=== PATIENT | female | born 1955 | race Caucasian/White ===

== ENCOUNTER 2022-08-05 07:20 | Observation (INO) ==
--- NOTE | 2022-07-08 11:45 | PAT Medication Instructions ---
Medication Instructions Date of Service July 08, 2022 Home Medications Antacid 1 tab PO UD PRN gerd anastrozole 1 mg tablet 1 mg PO QAM calcium carbonate 600 mg calcium (1,500 mg) tablet 600 mg PO BID cholecalciferol (vitamin D3) 50 mcg (2,000 unit) capsule (Vitamin D3) 50 mcg PO QDL denosumab 60 mg/mL subcutaneous syringe (Prolia) 60 mg subcut UD lisinopril 10 mg tablet 10 mg PO QPM multivitamin 1 cap PO QAM omega-3 fatty acids 1,000 mg PO BID pravastatin 20 mg tablet 20 mg PO QPM Continue as directed denosumab 60 mg/mL subcutaneous syringe (Prolia) 60 mg subcut UD ASK your prescriber and surgeon anastrozole 1 mg tablet 1 mg PO QAM STOP taking 2 weeks before surgery omega-3 fatty acids 1,000 mg PO BID DO NOT take the morning of surgery calcium carbonate 600 mg calcium (1,500 mg) tablet 600 mg PO BID multivitamin 1 cap PO QAM cholecalciferol (vitamin D3) 50 mcg (2,000 unit) capsule (Vitamin D3) 50 mcg PO QDL Take morning of surgery With a small sip of water, OTHERWISE NOTHING TO EAT OR DRINK AFTER MIDNIGHT: Antacid 1 tab PO UD PRN gerd (*pepcid, prilosec, nexium are ok... TUMS IS NOT OKAY TO TAKE AM OF SURGERY) Take evening before surgery calcium carbonate 600 mg calcium (1,500 mg) tablet 600 mg PO BID pravastatin 20 mg tablet 20 mg PO QPM lisinopril 10 mg tablet 10 mg PO QPM Other Notes If you have any questions please call us at [phone] or [phone] or [phone] or [phone]
--- NOTE | 2022-07-11 11:25 | Anesthesiology Consultation ---
Date of Service July 11, 2022 Assessment & Plan (1) Encounter for pre-operative examination: - surgery now scheduled as unilateral TKA. - Case discussed in detail with Dr. Joya who advised pt does not need further evaluation to his standpoint, but that procedure should be changed to unilateral TKA, not bilateral. This was also discussed with pt at PAT visit and she expressed plan to change booking after similar recommendations by other providers. Surgeon's office made aware. - PONV: to anesthesiologist discretion if scop patch to be Rx for pt DOS or alternate options to be pursued. - limb restriction: left upper arm. - Outpatient joint assessment: Patient is currently scheduled for inpatient pathway. If re-evaluated pending system levels during current pandemic/surgeon requests outpatient pathway, patient is not acceptable candidate for outpatient joint program from anesthesia standpoint (even for unilateral TKA)-she notes her just underwent spinal surgery and she prefers to remain overnight. Chart Review Chart Review: Acceptable Risk for Surgery and Patient seen in Pre Admission Testing Teaching & Discussion Pre-Anesthesia Teaching/Discussion Notes: Instructed NPO after midnight before surgery, except medications with 15 cc of water. Medication instructions provided according to the PAT guidelines. History Surgery Operation Date: 08/05/22 07:15 Proposed Procedures p Right Total Knee Arthroplasty - Juan R Pugh, Height/Weight Height: 5 ft 2 in Weight: 90.718 kg Allergies Allergy/AdvReac Type Severity Reaction Status Date / Time Penicillins Allergy Rash Verified 07/08/22 10:01 Medications Home Medications Medication Instructions Recorded Confirmed Last Taken Antacid 1 tab PO UD PRN gerd 07/08/22 07/08/22 Unknown anastrozole 1 mg tablet 1 mg PO QAM 07/08/22 07/08/22 Unknown calcium carbonate 600 mg calcium 600 mg PO BID 07/08/22 07/08/22 Unknown (1,500 mg) tablet cholecalciferol (vitamin D3) 50 50 mcg PO QDL 07/08/22 07/08/22 Unknown mcg (2,000 unit) capsule (Vitamin D3) denosumab 60 mg/mL subcutaneous 60 mg subcut UD 07/08/22 07/08/22 Unknown syringe (Prolia) lisinopril 10 mg tablet 10 mg PO QPM 07/08/22 07/08/22 Unknown multivitamin 1 cap PO QAM 07/08/22 07/08/22 Unknown omega-3 fatty acids 1,000 mg PO BID 07/08/22 07/08/22 Unknown pravastatin 20 mg tablet 20 mg PO QPM 07/08/22 07/08/22 Unknown Past Medical History Medical History GERD (gastroesophageal reflux disease) controlled, stable per pt History of breast cancer dx'd 08/2021. left breast. lumpectomy + radiation. History of migraine History of skin cancer removed HLD (hyperlipidemia) HTN (hypertension) controlled, stable per pt Limb alert care status LUE PONV (postoperative nausea and vomiting) scop patch administered for breast surgery Patient denies h/o stroke, seizures, heart attack, heart failure, DM, blood clots or blood transfusions. Exercise / Class Metabolic Activity II 4-5 Yardwork/Stairs/Walk up hill (occasional shortness of breath with 1 FOS, ongoing x several months with progressive knee dysfunction; denies change or worsening; denies chest discomfort) Past Family History Family History Other No family history of adverse response to anesthesia Past Surgical History Surgical History H/O lymph node excision History of appendectomy History of breast biopsy History of x 3 History of cholecystectomy History of colonoscopy History of lumpectomy of left breast Past Anesthesia History No Hx of Anesthesia Complications and No Family Hx of Anesthesia Complications History of PONV History of PONV (scop patch administered for breast surgeries) and Hx of Motion Sickness Social History Smoking Status: Never smoker Do You Dip or Chew Tobacco: No Hx Alcohol Use: No Hx Substance Use: No substance use type: does not use Review of Systems Patient denies chest pain, snoring, witnessed apneas, fever, chills, cough, wheezing, or palpitations. Physical Exam Vital Signs Vitals BP 124/81 P 67 TEMP 98.5 SP02 98% on RA RESP 18 Physical Full cervical extension range of motion without pain TMD 3.5 finger breadths Mallampati Score 3 Dentition: permanent upper bridge and partial lower; denies chipped or loose teeth Lungs: normal respiratory effort. Clear throughout to auscultation, no adventitious breath sounds Cardiac: regular rate and rhythm, no murmurs noted Carotid arteries: negative bruit bilat Lab Results Anesthesia Preop Results Results Anesthesia Widget: WBC 5.91 K/ul (4.8-10.8) 07/11/22 Hgb 12.5 g/dl (12.0-16.0) 07/11/22 Hct 37.6 % (37.0-47.0) 07/11/22 Plt 242 K/uL (130-400) 07/11/22 Na 139 mmol/L (136-145) 07/11/22 K 4.7 mmol/L (3.5-5.1) 07/11/22 Cl 106 mmol/L (98-107) 07/11/22 CO2 27 mmol/L (21-32) 07/11/22 BUN 19 mg/dl (6-23) 07/11/22 Creat 0.79 mg/dl (0.6-1.2) 07/11/22 Glucose Level 94 mg/dl (70-99(Fasting)) 07/11/22 PT 10.2 Seconds (9.0-12.0) 07/11/22 PTT 26.2 Seconds (21.0-31.0) 07/11/22 INR 1.0 (0.9-1.1) 07/11/22 Urine Color Yellow 07/11/22 Urine Appearance Clear (Clear) 07/11/22 Urine pH 5.0 (4.5-7.5) 07/11/22 Urine Specific [place] 1.012 (1.000-1.030) 07/11/22 Urine Protein Negative (Negative) 07/11/22 Urine Glucose (UA) Negative (Negative) 07/11/22 Urine Ketones Negative (Negative) 07/11/22 Urine Blood Negative (Negative) 07/11/22 Urine Nitrite Negative (Negative) 07/11/22 Urine Bilirubin Negative (Negative) 07/11/22 Urine Urobilinogen Negative (Negative) 07/11/22 Urine Leukocyte Esterase Trace (Negative) H 07/11/22 Urine WBC (Auto) 1-5 /hpf (0-5) 07/11/22 Urine RBC (Auto) 0-4 /hpf (0-4) 07/11/22 Urine Hyaline Casts (Auto) 1-5 /lpf (0-5) 07/11/22 Urine Epithelial Cells (Auto) 10-20 /lpf (0-5) H 07/11/22 Urine Bacteria (Auto) Negative (Negative) 07/11/22 Blood Type AB Positive 07/11/22 Antibody Screen NEGATIVE 07/11/22 Testing Electrocardiogram Date: 07/11/22 Sinus bradycardia, rate 58 bpm Chest X-Ray Date: 07/11/22 Left axillary surgical clips are incidentally noted. No pneumothorax or pleural effusion is present. There is no evidence for pulmonary edema. There is no consolidation to suggest pneumonia. There is mild cardiomegaly. IMPRESSION: No acute cardiopulmonary findings. COVID-19 Risk Screen Screening Information COVID-19 Screen Date: 07/11/22 Exposure 21 Days Family/Household +COVID Last 21 Days: No Exposure 10 Days Any COVID Exposure Last 10 Days: No Symptoms Last 10 Days Experienced COVID Sx Last 10 Days: No + COVID 0-90 Days COVID + in Last 0-90 Days: No
--- NOTE | 2022-07-14 10:50 | History & Physical Report ---
Date of Service July 14, 2022 date of surgery: 08/05/22 Procedure: Right Total Knee Arthroplasty Surgeon: Juan R Pugh Assessment & Plan (1) Arthritis of right knee: Plan: Presents for preop evaluation prior to right total knee replacement scheduled at [facility] with Dr. Pugh. She has failed conservative measures including previous corticosteroid injection as well as viscosupplementation without any relief. At this point time she has failed conservative measures and would like to proceed with surgical invention. will place on ASA 81mg po bid x 1 month, recommend HHPT x 2 weeks. The risks and benefits have been discussed including, but not limited to, risk of infection, nerve injury, stiffness, loss of motion, failure to improve, etc. Reasonable outcomes and options of treatment were discussed. An explanation of appropriate alternatives to the procedure that may be advantageous were discussed and their risks and benefits, as well as the risks and benefits of not proceeding with treatment. I offered to answer any additional inquiries concerning the treatment involved. All the patient's questions were answered. The patient is agreeable, understanding of the treatment plan and alternatives, and wishes to proceed with the treatment plan. History of Present Illness Chief Complaint: Right knee pain Primary Care Provider: NO PCP Maisha is a pleasant 67-year-old female who presented for preop evaluation prior to right total knee replacement. She states that he been having pain in this knee for many years now is gradually worsened and is now affecting her daily activities including walking standing using stairs. She has failed previous conservative measures including corticosteroid injection as well as viscosupplementation without relief. She tried Tylenol anti-inflammatories as well, rates her current pain is 7 out of 10 at this point time would like to proceed with right total knee replaced Allergies Allergy/AdvReac Type Severity Reaction Status Date / Time Penicillins Allergy Rash Verified 07/08/22 10:01 Home Medications Medication Instructions Recorded Confirmed Type Antacid 1 tab PO UD PRN gerd 07/08/22 07/08/22 History anastrozole 1 mg tablet 1 mg PO QAM 07/08/22 07/08/22 History calcium carbonate 600 mg calcium 600 mg PO BID 07/08/22 07/08/22 History (1,500 mg) tablet cholecalciferol (vitamin D3) 50 50 mcg PO QDL 07/08/22 07/08/22 History mcg (2,000 unit) capsule (Vitamin D3) denosumab 60 mg/mL subcutaneous 60 mg subcut UD 07/08/22 07/08/22 History syringe (Prolia) lisinopril 10 mg tablet 10 mg PO QPM 07/08/22 07/08/22 History multivitamin 1 cap PO QAM 07/08/22 07/08/22 History omega-3 fatty acids 1,000 mg PO BID 07/08/22 07/08/22 History pravastatin 20 mg tablet 20 mg PO QPM 07/08/22 07/08/22 History Past Med/Surg History Medical History GERD (gastroesophageal reflux disease) controlled, stable per pt History of breast cancer dx'd 08/2021. left breast. lumpectomy + radiation. History of migraine History of skin cancer removed HLD (hyperlipidemia) HTN (hypertension) controlled, stable per pt Limb alert care status LUE PONV (postoperative nausea and vomiting) scop patch administered for breast surgery Surgical History H/O lymph node excision History of appendectomy History of breast biopsy History of x 3 History of cholecystectomy History of colonoscopy History of lumpectomy of left breast Family History Other No family history of adverse response to anesthesia Social History Smoking Status: Never smoker Second Hand Exposure: Yes (as a child); Hx Alcohol Use: No Hx Substance Use: No Preferred Language: Cymro Communication Ability: Effective Log Handler Required: No Beliefs That Will Affect Care: None Current Living Situation: Spouse Feels Safe at Home: Yes Assistive Devices: Denture - Lower and Glasses Review of Systems Review of Systems: All systems reviewed & are unremarkable except as noted in HPI & below Constitutional: no fever, no chills and no sweats Respiratory: no cough and no dyspnea Cardiovascular: no chest pain, no dyspnea and no orthopnea Gastrointestinal: no abdominal pain, no nausea and no vomiting Musculoskeletal: as per Subjective / HPI Physical Exam Physical Exam: HT: 5ft 2in WT: 95.5kg Constitutional: WD/WN, vitals as above no acute distress Respiratory: normal respiratory effort, lungs clear to auscultation no respiratory distress, no labored breathing and does not use accessory muscles Cardiovascular: RRR, no murmur, no edema Gastrointestinal (Abdomen): normal bowel sounds, soft, nontender, no hepatosplenomegaly Musculoskeletal: Knee: + knee abnormal to inspection (Right Knee: ), + effusion (+1 effusion), + limited ROM of knee (ROM 0/3/110), + knee ROM with crepitation, + joint line tenderness (medial joint line) and + Jadiel's sign positive; no deformity, no skin erythema, no ecchymosis, no valgus laxity, no varus laxity, anterior drawer test negative, Wild's sign negative and pivot shift test negative Results & Data Results & Data Diagnostic Findings Right Knee X-ray: Right knee series showing advanced degenerative changes to the right knee, narrowing of the medial compartment and patello-femoral joint with patellar spurring noted, findings showing joint space narrowing of the medial compartment and patello-femoral joint, osteophyte formation and subchondral sclerosis noted. overall varus alignment. no acute bony pathology noted.
[~2022-08-05 07:20] MED LIST: ACETAMINOPHEN 500 MG TAB PO SCH; CeleBREX 200 MG CAP PO SCH; FAMOTIDINE 20 MG TAB PO SCH; GABAPENTIN 300 MG CAP PO SCH; LR 500ML BOLUS, THEN 15ML/HR IV SCH; METOCLOPRAMIDE HCL 10 MG TABLET PO SCH; ROPIVACAINE 0.5% 5 MG/ML 30 ML VIAL ONE; ROPIVACAINE 0.5% HCL/PF 150 MG, BUPIVACAINE 0.75% MPF 20 ML, EPINEPHrine 30MG/30ML (OR ... INSTIL SCH; TRANEXAMIC ACID 1,000 MG **IV Intra-op IV SCH; TRANEXAMIC ACID 1,000 MG **IV Pre-op IV SCH; ceFAZolin 2000MG 2,000 MG/15 ML SYR IV SCH; dexAMETHasone 4 MG TAB PO SCH
[2022-08-05] MEDS ORDERED: fentaNYL citrate PF 100 MCG/2 ML VIAL ONE (07:45)
[2022-08-05] MEDS ORDERED: MIDAZOLAM HCL 1 MG/ML 2ML VIAL ONE ×2 (07:45)
[2022-08-05] MEDS ORDERED: ONDANSETRON INJ 2 MG/ML 2 ML VIAL ONE (08:18)
[2022-08-05] MEDS ORDERED: PROPOFOL IV EMULSION 10 MG/ML 20 ML VIAL IV ONE (08:18)
--- NOTE | 2022-08-05 08:24 | History & Physical Bridge Note ---
Date of Service August 05, 2022 History & Physical Bridge Note I have examined the patient, reviewed the History & Physical and in the interval since the performance of the History & Physical I have noted the following changes of clinical significance: no changes noted
[2022-08-05] MEDS ORDERED: ORTHO JOINT ANESTHETIC ONE (08:55)
[2022-08-05] MEDS ORDERED: ePHEDrine sulfate 50 MG/ML AMP IV PRN (09:00)
[2022-08-05] MEDS ORDERED: HYDROmorphone INJ 2 MG/ML SYR/VIAL IV PRN (09:00)
[2022-08-05] MEDS ORDERED: ONDANSETRON INJ 2 MG/ML 2 ML VIAL IV PRN ×2 (09:00→12:44)
[2022-08-05] MEDS ORDERED: fentaNYL citrate PF 100 MCG/2 ML VIAL IV PRN (09:00)
[2022-08-05] MEDS ORDERED: ATROPINE SULFATE 0.1 MG/ML 10ML SYR IV PRN (09:00)
--- NOTE | 2022-08-05 10:36 | Operative Report ---
Post Operative Report Pre & Post Diagnosis Operation Date: 08/05/22 09:15 Pre-Op Diagnosis: Arthritis of right knee Post-Op Diagnosis: Arthritis of right knee I identified the patient and participated in the time-out.: Yes Procedure Operation Date: 08/05/22 09:15 Actual Procedures p Right Total Knee Arthroplasty(Right utilizing [employer] journey 2 patient matched total knee arthroplasty size femur 5 tibia 4 poly 11 mm constrained patella 29 oval) - Juan R Pugh DO Surgeon Juan R Pugh DO Senior Technical Writer THAD [place] Estimated Blood Loss 5 Findings Consistent with Post-Op Diagnosis Patient presents with severe end-stage DJD valgus alignment of the right knee with eburnated [id number] marginal osteophytes medial lateral collateral ligament laxity subchondral cystic changes with subchondral eburnated exposed bone moderate to large effusion Specimens Bone and cartilage Drains Medium bore Hemovac Anesthesia Type MAC Spinal Regional Complications none Disposition Accompanied Patient To Recovery: No Disposition: Recovery Room Indications Patient presents with severe end-stage tricompartmental DJD after failed attempt ed conservative management occluding physical therapy anti-inflammatories relative rest activity modification corticosteroid injection viscosupplementation Description of Procedure After proper prepping and draping of the Right lower extremity anterior midline incision was made over the region of the extensor extensor mechanism after meticulous hemostasis was obtained and maintained in subcutaneous tissues a medial parapatellar incision was made The patella was subluxed lateralward the medial lateral gutter were cleaned from any hypertrophic synovitis and scar tissue of the distal femoral block was placed and the distal femoral osteotomy cut was made subsequently the chamfers anterior and posterior osteotomy cuts were made utilizing the 4-in-1 block the tibia was subsequently subluxed anteriorward medial and ateral meniscal remnants were excised in their entirety remnants of the anterior and posterior cruciate ligaments were excised in their entirety excellent exposure of the proximal tibia was obtained the tibial osteotomy guide was placed on the proximal tibial osteotomy cut was made once again the knee was irrigated with copious amounts of sterile saline solution the patella was subsequently everted lateralward thickened scar tissue around the patella was removed the patella was subsequently cut utilizing a freehand technique and was drilled prepared for final preparation and placement of patella socially flexion-extension gaps were checked and the equal and symmetric trials were placed to the appropriate femoral and tibial trials with poly-spacer being placed for equal flexion and extension gaps and full range of motion including extension to 0 and flexion to 140 the trial components after having been taken to recovery range of motion was subsequently removed meticulous hemostasis was obtained and maintained subsequently a knee block injection of joint cocktail including ropivacaine 0.5% 150 mg. Bupivacaine 0.5% epinephrine 1-200,030 mL's toradol 30 mg dexamethasone 4 mg ketamine 10 mg clonidine 100 micrograms normal saline solution 30 mg was infiltrated into the soft tissues of the posterior knee medial lateral gutters and periosteal synovium special attention was paid to protect neurovascular structures at all times subsequently trial components having been removed the knee was irrigated with sterile saline solution. debris was removed the proximal tibia was subsequently prepared and was made ready for the placement of the tibial component tibial component was also cemented and tamped into position the femoral component was subsequently placed and cemented in the position the patellar component was subsequently cemented in position because hemostasis once again obtained and maintained wound having been thoroughly irrigated with debridement and debridement lavage was performed as well as a medial parapatellar incision closed with #1 Vicryl in interrupted fashion subcutaneous was closed with #2 Vicryl skin was closed with skin clips. PA-C was necessary for prepping and drapping as well as wound closure of deep fascia Sub cutaneous tissue and skin and was necessary for the case. A sterile compressive dressing was placed patient was taken to recovery in stable condition of report dictated by Keaton I attest to the content of the Intraoperative Record and any orders documented therein. Any exceptions are noted below.Due to the complex nature of the procedure, the entire surgery was performed with the operational assistance of THAD Camar[place]. The sales assistant, under direct supervision, was involved in the actual performance of all aspects of the surgical procedure including hemostasis, tissue retraction and incision, instrument management, patient positioning, and wound closure. I attest to the content of the Intraoperative Record and any orders documented therein. Any exceptions are noted below.
[2022-08-05] MEDS ORDERED: PHENYLEPHRINE 100MCG/ML 5ML SYR ONE (11:01)
[2022-08-05] MEDS ORDERED: SCOPOLAMINE 1 MG TDSY TD SCH (11:30)
--- NOTE | 2022-08-05 11:52 | XRay Report ---
XR knee RT 1 or 2V routine CLINICAL HISTORY: Surgical Post Op COMPARISON: None FINDINGS: Alignment of the total right knee arthroplasty is anatomic. There is no periprosthetic fra cture. There is no unexpected radiopaque foreign body. There are surgical drains. IMPRESSION: Expected findings following total right knee arthroplasty. ACT 112: Negative or not required by law. Electronically signed by: Jose Cabrales M.D. 08/05/2022 11:51 AM
--- NOTE | 2022-08-05 12:03 | Anesthesiology Progress Note ---
Date of Service August 05, 2022 Anesthesia Post Procedure Vital Signs Vital Signs: Temp Pulse Resp BP Pulse Ox O2 Del Method O2 Flow Rate 08/05/22 11:55 36.4 C L 70 20 100/68 94 Room Air 08/05/22 11:45 67 20 106/70 94 Room Air 08/05/22 11:35 71 12 96/60 L 99 Oxymask 10 08/05/22 11:25 66 12 95/59 L 99 Oxymask 10 08/05/22 11:19 36.4 C L 68 14 98/58 L 97 Oxymask 10 08/05/22 07:40 36.8 C 20 149/95 H 98 Room Air Transfer of Care Handoff Completed per policy Notes Mental Status: alert / awake / arousable and participated in evaluation Patient Amnestic to Procedure: Yes Nausea / Vomiting: adequately controlled Pain: adequately controlled Airway Patency, RR, SpO2: stable & adequate BP & HR: stable & adequate Hydration State: stable & adequate Neuraxial Anesthesia: was administered and sensory block is resolving Anesthetic Complications: no major complications apparent and Pt Satisfied with anesthetic care
[2022-08-05] MEDS ORDERED: diphenhydrAMINE Capsule 25 MG CAP PO PRN (12:44)
[2022-08-05] MEDS ORDERED: NALOXONE HCL 0.4 MG/1 ML VIAL/CARP IV PRN (12:44)
[2022-08-05] MEDS ORDERED: METOCLOPRAMIDE HCL INJ 5 MG/ML 2 ML VIAL IV PRN (12:44)
[2022-08-05] MEDS ORDERED: MAGNESIUM HYDROXIDE SUSP 30 ML UDC PO PRN (12:44)
[2022-08-05] MEDS ORDERED: HYDROmorphone INJ 1 MG/ML SYRINGE IV PRN (12:44)
[2022-08-05] MEDS ORDERED: NON-FORMULARY MEDICATION (Denosumab [Prolia] 60 mg/mL Syringe) SQ SCH (12:44)
[2022-08-05] MEDS ORDERED: bisacodyL 10 MG SUPP PR PRN (12:44)
[2022-08-05] MEDS: SODIUM CHLORIDE 0.9% 1000ML 1,000 ML IV SCH (15:04)
[2022-08-05] MEDS: ACETAMINOPHEN 500 MG TAB PO SCH ×2 (15:18→21:38)
[2022-08-05] MEDS: CHECK SCOPOLAMINE PATCH PLACEMENT SCH (15:22)
[2022-08-05] MEDS: ALLERGY Noted to ORDERED Medication SCH ×4 (15:58→20:13)
[2022-08-05] MEDS: KETOROLAC TROMETHAMINE 15 MG/ML VIAL IV SCH ×2 (16:21→21:39)
[2022-08-05] MEDS: ceFAZolin 2000MG 2,000 MG/15 ML SYR IV SCH (17:35)
[2022-08-05] MEDS: oxyCODONE HCL IR 5 MG TAB (IMMEDIATE RELEASE) PO PRN (18:33)
[2022-08-05] MEDS: CALCIUM 600MG + VIT D 400 IU TAB PO SCH (20:22)
[2022-08-05] MEDS: ASPIRIN 81 MG ECTAB PO SCH (20:23)
[2022-08-05] MEDS: DOCUSATE SODIUM 100 MG CAP PO SCH (20:23)
[2022-08-05] MEDS ORDERED: CeleBREX 200 MG CAP PO SCH (21:00)
[2022-08-05] MEDS ORDERED: lisinopril 10 MG TAB PO SCH (21:00)
[2022-08-05] MEDS ORDERED: PRAVASTATIN SOD 20 MG TAB PO SCH (21:00)
[2022-08-05] MEDS ORDERED: SENNA 8.6 MG TAB PO SCH (21:00)
[2022-08-06] MEDS: SODIUM CHLORIDE 0.9% 1000ML 1,000 ML IV SCH (00:08)
[2022-08-06] MEDS: CHECK SCOPOLAMINE PATCH PLACEMENT SCH ×2 (00:09→07:46)
[2022-08-06] MEDS: ceFAZolin 2000MG 2,000 MG/15 ML SYR IV SCH (00:59)
[2022-08-06] MEDS: KETOROLAC TROMETHAMINE 15 MG/ML VIAL IV SCH ×2 (03:30→10:03)
[2022-08-06] MEDS: oxyCODONE HCL IR 5 MG TAB (IMMEDIATE RELEASE) PO PRN ×2 (03:34→11:31)
[2022-08-06] MEDS: ACETAMINOPHEN 500 MG TAB PO SCH ×2 (05:38→13:49)
[2022-08-06] MEDS: DOCUSATE SODIUM 100 MG CAP PO SCH (07:52)
[2022-08-06] MEDS: ASPIRIN 81 MG ECTAB PO SCH (07:55)
[2022-08-06] MEDS: CALCIUM 600MG + VIT D 400 IU TAB PO SCH (08:29)
--- NOTE | 2022-08-06 08:41 | Orthopedic Progress Note ---
Date of Service August 06, 2022 Assessment & Plan (1) Arthritis of right knee: Plan: Postop day 1 status post right total knee arthroplasty PT/OT protocols. Weightbearing as tolerated. DVT prophylaxis-aspirin p.o. twice daily, SCDs, MITZI padilla. Pain management as written. A.m. labs pending. DC planning-patient is planning for home health services upon discharge. Admission and Anticipated Discharge Date Admission Date: August 05, 2022 Subjective Postop day 1 Patient currently ambulating with MEDIA RELATIONS COORDINATOR to the bathroom. Patient feels well to day. Pain is controlled. Denies shortness of breath, chest pain, lightheadedness. Physical Exam Physical Exam: Omar dressing is clean, dry, and intact. Functioning well. Calves are soft nontender. Neurovascular intact. Toes are mobile. She has good dorsiflexion and plantarflexion of the right foot. Hemovac drainage was 50 cc from the previous shift and her drain was removed this morning by the staff. Results & Data Vital Signs (Past 12 Hours) Vital Signs Temp Pulse Resp BP Pulse Ox O2 Del Method 08/06/22 07:17 36.6 C 69 18 102/68 97 Room Air 08/06/22 03:18 36.4 C L 74 16 100/62 96 Room Air 08/05/22 23:29 104/64 08/05/22 23:24 36.5 C 69 16 91/60 L 95 Room Air
[2022-08-06] MEDS ORDERED: ANASTROZOLE 1 MG TAB PO SCH (09:00)
[2022-08-06] MEDS ORDERED: MULTIVITAMIN TAB PO SCH (09:00)
[2022-08-06 09:18] LABS: Hematocrit (blood only) 34.4 % (37.0-47.0); Hemoglobin 11.7 g/dl (12.0-16.0); Mean Corpuscular Hemoglobin 31.8 pg (25.0-34.0); Mean Corpuscular Volume 93.5 fL (80.0-100.0); Mean Platelet Volume 9.9 fL (9.4-12.4); Platelet Count 224 K/uL (130-400); RDW Coefficient of Variation 12.8 % (11.5-14.5); RDW Standard Deviation 43.9 fL (36.4-46.3); Red Blood Count 3.68 M/uL (4.20-5.40); White Blood Count 11.83 K/ul (4.8-10.8)
[2022-08-06 09:34] LABS: BUN Creatinine Ratio 20.3 (10-20); Calcium 8.9 mg/dl (8.6-10.3); Creatinine Clr Calc Pharmacy 79.8 ml/min; Est GFR (African American) 97.8 ml/min; Est GFR (Non-African American) 84.4 ml/min; Potassium 4.1 mmol/L (3.5-5.1)
[2022-08-06] MEDS ORDERED: CHOLECALCIFEROL 1,000 UNITS 25 MCG TAB PO SCH (11:30)
--- NOTE | 2022-08-06 13:37 | Discharge Summary ---
Date of Service date of discharge: August 06, 2022 date of admission: 08/05/22 Admission HPI Per Admitting Provider Maisha is a pleasant 67-year-old female who presented for preop evaluation prior to right total knee replacement. She states that he been having pain in this knee for many years now is gradually worsened and is now affecting her daily activities including walking standing using stairs. She has failed previous conservative measures including corticosteroid injection as well as viscosupplementation without relief. She tried Tylenol anti-inflammatories as well, rates her current pain is 7 out of 10 at this point time would like to proceed with right total knee replaced Principal Diagnosis right knee arthritis Discharge Exam Musculoskeletal right knee: NVDI, calf SNT, negative day sign. DP palpable, able to wiggle toes/ankle movement without difficulty. EUGENIE dressing clean dry and intact. expected post-operative bruising noted. Discharge Data Allergies Allergy/AdvReac Type Severity Reaction Status Date / Time Penicillins Allergy Rash Verified 08/05/22 07:47 Procedures Performed Operation Date: 08/05/22 09:15 Actual Procedures p Right Total Knee Arthroplasty(Right) - Juan R Pugh DO Ordered Studies 08/05/22 05:00 US - OR guided needle placemen Routine Hospital Course (1) Arthritis of right knee: Postop day 1 status post right total knee arthroplasty PT/OT protocols. Weightbearing as tolerated. DVT prophylaxis-aspirin p.o. twice daily, SCDs, MITZI padilla. Pain management as written. A.m. labs pending. DC planning-patient is planning for home health services upon discharge. Total Time Total Time Spent Total Time Spent (In Minutes): 20 Discharge Plan Discharge Items Patient Disposition: Home - Home Health Services Reason For Visit: Osteoarthritis Knee Bilateral Discharge Diagnosis: right total knee replacement Activity: Per Instructions section Weightbearing: Right weightbearing Weightbearing Comment: WBAT with walker Non-emergency contact: Surgeon Call non-emergency contact if: you have any medication questions, your temperature is above 101, your wound has increased redness, your wound has increased drainage and your wound pain has increased Follow-up/Referrals: Juan R Pugh DO [Surgeon] - (Follow-up with Dr. Pugh or his PA in 2 weeks from the day of surgery for your first postoperative visit.) Ortega Mcneil DO [Primary Care Provider] - Diet: Regular Addtl Attending Provider Instructions: ACTIVITY RECOMMENDATIONS: SELF CARE INSTRUCTIONS AFTER TOTAL KNEE REPLACEMENT A. You may need to continue a physical therapy program after discharge from the hospital. There are several options available to you. Your doctor will assist you in selecting the best one for you. 1. An out-patient facility 2 to 3 times a week for therapy or home therapy. 2. Continue working on all exercises taught to you in the hospital. Your goals should be to increase bending of your knee to 90 degrees and beyond and to fully straighten your knee. B. You may progress at your own pace from walking with a walker or crutches to a cane; then to no assistive devices. C. Make walking a part of your daily routine. Be up as much as comfortable with rest periods throughout the day. Rest with leg elevation is very important. Use the ice wrap frequently for the first 3-4 weeks. D. There are no restrictions on activities. You may ride in a car, shop, participate in roofer and all social activities. E. Wear the long elastic stockings (MITZI hose) 20 hours a day for 2 weeks after surgery. They can be removed several times a day for laundering and for a bath. F. You may shower, no tub baths until cleared by your doctor. SPECIAL CARE INSTRUCTIONS: VERY IMPORTANT TO READ AND REVIEW A. There are a few signs you need to watch for after you are home. Call [facility] if you notice any of the followin. Increased severe knee pain. Some pain is expected especially when you exercise. 2. Increased swelling in your leg or knee; pain or swelling of the calf muscle in either lower leg. 3. Any fluid drainage from the incision. 4. Shortness of breath or chest pain. B. Please call [facility] at if you have any concerns or questions about your operation or recovery. The doctor or his nurse will return your call promptly. C. You must take antibiotics before dental work, bladder, bowel or other surgery. Your doctor will provide you with a permanent care to carry describing this precaution. IMPORTANT: * REMEMBER TO TAKE ASPIRIN, 81 MG, TWICE DAILY FOR 4 WEEKS UNLESS OTHERWISE DIRECTED. THIS IS YOUR BLOOD THINNER. * HIGH RISK PATIENTS MAY BE PRESCRIBED A STRONGER BLOOD THINNER. THIS WILL BE PROVIDED AT DISCHARGE. * CALL IF INCREASED PAIN, REDNESS, DRAINAGE OR FEVER GREATER THAT 101. * WEAR MITZI HOSE 20 HOURS PER DAY FOR 2 WEEKS. DRESSING INSTRUCTIONS * EUGENIE Dressing- This is a large suction dressing covering your incision. This will help pull any excess drainage from the wound and allow your incision to heal properly. You may shower with this if you can keep the unit outside of the shower. If any bleeding or leakage is noted please call your doctor's office. This will remain on your incision for 7 days and then should be removed. This can be done yourself or by the home nursing staff if applicable. The entire unit is disposable once removed. Once removed, keep incision clean and dry. If redness or drainage is noted, please call your surgeon. ONCE EUGENIE IS REMOVED, FOLLOW THESE INSTRUCTIONS: DERMABOND Prineo- This is a mesh tape dressing that is covered with glue. It should remain in place until the incision is properly healed, usually 10-14 days. This dressing is designed to naturally slough off. You may trim the excess mesh tape as it peels off. Incision may be briefly wet in a shower. Dry immediately by blotting with a clean, dry towel. Do not bath or swim until instructed by your doctor. Do not scratch, rub, or pick at the dressing. Do not apply any topical ointments or lotions until dressing is completely removed and/or instructed by your doctor. There may be a small piece of suture material at one end of your incision. Do not pull or trim this. If it is bothersome or catching on clothing, you may cover it with a band-aid. IF INCISION IS LEAKING THROUGH DRESSING, CALL THE OFFICE . FOLLOW UP VISIT: If appointment is not already scheduled: Please call [facility] to make a follow-up appointment for 2 weeks after your surgery at . Stand-Alone Forms: My [facility], Pain - Opioid Pain Management Medications and DC Order Prescriptions: New acetaminophen [Tylenol Extra Strength] 500 mg Tablet 1,000 mg PO Q8 14 Days Qty: 84 0RF aspirin 81 mg Tablet,Delayed Release (Dr/Ec) 81 mg PO BID 30 Days Qty: 60 0RF celecoxib [Celebrex] 200 mg Capsule 200 mg PO BID 14 Days Qty: 28 0RF doxycycline hyclate 100 mg capsule 100 mg PO BID 14 Days Qty: 28 1RF polyethylene glycol 3350 [Miralax] 17 gram powder in packet 17 g PO DAILY PRN (Reason: constipation) Qty: 5 0RF oxycodone 5 mg tablet 5 mg PO Q4H MDD 6 PRN (Reason: pain) Qty: 30 0RF Continued anastrozole 1 mg Tablet 1 mg PO QAM lisinopril 10 mg Tablet 10 mg PO QPM pravastatin 20 mg Tablet 20 mg PO QPM Prolia 60 mg/mL Syringe 60 mg SUBCUT UD calcium carbonate 600 mg calcium (1,500 mg) Tablet 600 mg PO BID multivitamin Capsule 1 cap PO QAM cholecalciferol (vitamin D3) [Vitamin D3] 50 mcg (2,000 unit) Capsule 50 mcg PO QDL Antacid 1 tab PO UD PRN (Reason: gerd) Patient Comments: OTC Nexium (esomeprazole) Discontinued Seagraves 3 Capsule 1,000 mg PO BID Admission Data Admit Date/Time: 08/05/22 11:25 Attending Provider: Juan R Pugh Admit Provider: Juan R Pugh Primary Care Provider: Ortega Mcneil Other Providers: [facility],Home Healthcare Other Interventions: Discharge Summary Assessment (RN) Last Done: 08/06/22 09:07
== END 2022-08-06 14:43 | disposition home health service (06) ==
LOC: ASU 07:20 → PACUINP 07:20 → 3E 14:55